=== PATIENT | male | born 1980 | race Two or more races ===

== ENCOUNTER 2019-01-22 03:42 | Inpatient (IN) | payer OTHER ==
[~2019-01-22] VITALS: Ht 172.7 cm; Wt 104.0 kg
[2019-01-22] MEDS ORDERED: ACETAMINOPHEN 500 MG TABLET ONE (03:56)
[2019-01-22] MEDS ORDERED: IBUPROFEN 800 MG TABLET ONE (03:56)
--- NOTE | 2019-01-22 04:07 | NUR ---
4 DAYS OF COUGH, SINUS CONGESTION, FEVERS, RA SPO2 87%, DYSPNIC WITH EXERTION, O2 PLACED 2L NC, PT HAS NO MEDICAL HX, POSITIVE DAILY SMOKER, HR 119. TO BEDSIDE
[2019-01-22] MEDS ORDERED: ACETAMINOPHEN 500 MG TABLET PO ONE (04:30)
[2019-01-22] MEDS ORDERED: SODIUM CHLORIDE 0.9% 1,000ML IVBOLUS ONE (04:30)
[2019-01-22] MEDS ORDERED: IBUPROFEN 200 MG TABLET PO ONE (04:30)
--- NOTE | 2019-01-22 04:33 | NUR ---
IV START, LABS DRAWN, FLUIDS INFUSING, EKG DONE AND DR GARCIA TO BEDSIDE
[2019-01-22] MEDS: DOXYCYCLINE 100MG TABLET PO SCH ×2 (04:45→17:12)
[2019-01-22 04:46] LABS: RAPID INFLUENZA A POSITIVE (Negative); RAPID INFLUENZA B Negative (Negative)
[2019-01-22 04:47] LABS: ALBUMIN 3.5 g/dL (3.4-5.0); ANION GAP 6 mmol/L (5-15); CALCIUM 8.6 mg/dL (8.5-10.1); CHLORIDE 103 mmol/L (98-107); CREATININE 0.75 mg/dL (0.7-1.3)
[2019-01-22] MEDS ORDERED: POLYETHYLENE GLYCOL 17 GM PACKET PO PRN (05:00)
[2019-01-22] MEDS ORDERED: OXYcodone IR 5MG TABLET PO PRN (05:00)
[2019-01-22] MEDS ORDERED: hydrALAzine 20 MG/ML, 1ML IVPush PRN (05:00)
[2019-01-22] MEDS ORDERED: LABETALOL 5MG/ML, 20ML IVPush PRN (05:00)
[2019-01-22] MEDS ORDERED: BISACODYL 10 MG SUPP PR PRN (05:00)
[2019-01-22] MEDS ORDERED: IBUPROFEN 600 MG TABLET PO PRN (05:00)
[2019-01-22] MEDS ORDERED: ONDANSETRON ODT 4 MG PO PRN (05:00)
[2019-01-22] MEDS ORDERED: morphine SULFATE 10 MG/ML, 1ML IVPush PRN (05:00)
[2019-01-22] MEDS ORDERED: HEPARIN 5,000 UNITS/ML, 1ML SQ SCH (05:00)
[2019-01-22] MEDS: NICOTINE 7 MG/24 HR PATCH.TD24 TD SCH (05:00)
[2019-01-22] MEDS ORDERED: GABAPENTIN 300 MG CAPSULE PO PRN (05:00)
[2019-01-22] MEDS ORDERED: PROMETHAZINE 25 MG/ML, 1ML IM PRN (05:00)
[2019-01-22] MEDS ORDERED: DOCUSATE 100 MG CAPSULE PO PRN (05:00)
[2019-01-22] MEDS ORDERED: ONDANSETRON 2MG/ML, 2ML IVPush PRN (05:00)
--- NOTE | 2019-01-22 05:01 | NUR ---
REPORT TO AMISHA WYNN, AWAIT FURTHER RADIOLOGY RESULTS BEFORE TRANSPORT.
--- NOTE | 2019-01-22 05:19 | NUR ---
LAB CALLS AND STATES THAT THEY NEED TO RECOLLECT.
[2019-01-22 05:31] LABS: HEMOGLOBIN A1C 5.4 % (4.2-6.3)
[2019-01-22 05:34] LABS: FREE T4 (FREE THYROXINE) 1.38 ng/dL (0.76-1.46); THYROID STIMULATING HORMONE 0.704 mIU/L (0.358-3.740)
[2019-01-22 06:07] LABS: MEAN CORPUSCULAR HEMOGLOBIN 30.7 pg (27.5-34.5); MEAN CORPUSCULAR VOLUME 90.4 fL (81-97); RED CELL DISTRIBUTION WIDTH 12.7 % (9.4-14.8)
[2019-01-22 06:26] VITALS: BP 112/72
[2019-01-22 06:38] LABS: BASOPHILS # (AUTO) 0.02 x10^3/uL (0-0.1); BASOPHILS % (AUTO) 0 % (0-1); EOSINOPHILS % (AUTO) 0 % (1-7); LYMPHOCYTES # (AUTO) 0.78 x10^3/uL (1-3.4); LYMPHOCYTES % (AUTO) 18 % (22-44); MD SCAN; MEAN PLATELET VOLUME 10.6 fL (7.4-10.4); MONOCYTES # (AUTO) 0.26 x10^3/uL (0.2-0.8); MONOCYTES % (AUTO) 6 % (2-9); NEUTROPHILS # (AUTO) 3.35 x10^3/uL (1.8-6.8); NEUTROPHILS % (AUTO) 76 % (42-75); PLATELET COUNT 99 x10^3/uL (130-400)
[2019-01-22 07:24] VITALS: BP 95/59
[2019-01-22] MEDS: ACETAMINOPHEN 325 MG TABLET PO PRN ×3 (07:41→20:25)
[2019-01-22] MEDS: SODIUM CHLORIDE 0.9% 1,000 ML IV SCH ×2 (07:41→17:13)
[2019-01-22] MEDS: CEFTRIAXONE PMX 2GM/50ML 50 ML IV SCH (10:14)
[2019-01-22] MEDS: OSELTAMIVIR 75 MG CAPSULE PO SCH ×2 (10:14→20:33)
[2019-01-22 13:45] VITALS: BP 104/60
[2019-01-22 19:05] VITALS: BP 136/70
[2019-01-23 00:42] VITALS: BP 127/76
[2019-01-23] MEDS: NICOTINE 7 MG/24 HR PATCH.TD24 TD SCH (05:00)
[2019-01-23 05:29] LABS: ALANINE AMINOTRANSFERASE 79 U/L (12-78); ALBUMIN 3.1 g/dL (3.4-5.0); ANION GAP 7 mmol/L (5-15); CALCIUM 8.1 mg/dL (8.5-10.1); CHLORIDE 102 mmol/L (98-107)
[2019-01-23 05:32] LABS: ALKALINE PHOSPHATASE 122 U/L (45-117); BILIRUBIN,TOTAL 0.4 mg/dL (0.2-1.0); CHOL/HDL RATIO 7.4; CHOLESTEROL, TOTAL 111 mg/dL (140-239); CREATININE 0.57 mg/dL (0.7-1.3); HDL CHOL % 14 % (26-37); HDL CHOLESTEROL (DIRECT) 15 mg/dL (40-60); LDL CHOLESTEROL,CALCULATED 67 mg/dL (54-169); LDL/HDL RATIO 4.5 (0.5-3.0); TRIGLYCERIDES 146 mg/dL (50-200); VLDL CHOLESTEROL 29 mg/dL (0-25)
[2019-01-23] MEDS: DOXYCYCLINE 100MG TABLET PO SCH ×2 (05:33→17:00)
[2019-01-23 05:37] LABS: MEAN CORPUSCULAR HEMOGLOBIN 31.8 pg (27.5-34.5); MEAN CORPUSCULAR HGB CONC 34.9 g/dL (33.2-36.2); MEAN PLATELET VOLUME 10.2 fL (7.4-10.4); PLATELET COUNT 98 x10^3/uL (130-400); RED BLOOD COUNT 3.95 x10^6/uL (4.38-5.82); RED CELL DISTRIBUTION WIDTH 13.4 % (9.4-14.8)
[2019-01-23 06:08] LABS: BASOPHILS # (AUTO) 0.01 x10^3/uL (0-0.1); BASOPHILS % (AUTO) 0 % (0-1); EOSINOPHILS % (AUTO) 0 % (1-7); LYMPHOCYTES # (AUTO) 1.39 x10^3/uL (1-3.4); LYMPHOCYTES % (AUTO) 34 % (22-44); MD SCAN; MONOCYTES # (AUTO) 0.47 x10^3/uL (0.2-0.8); MONOCYTES % (AUTO) 11 % (2-9); NEUTROPHILS # (AUTO) 2.27 x10^3/uL (1.8-6.8); NEUTROPHILS % (AUTO) 55 % (42-75)
[2019-01-23 07:50] VITALS: BP 104/71
[2019-01-23] MEDS: CEFTRIAXONE PMX 2GM/50ML 50 ML IV SCH (08:12)
[2019-01-23] MEDS: OSELTAMIVIR 75 MG CAPSULE PO SCH ×2 (08:12→20:59)
[2019-01-23 13:21] VITALS: BP 114/70
[2019-01-23 19:26] VITALS: BP 127/73
[2019-01-24 02:17] VITALS: BP 110/70
[2019-01-24] MEDS: NICOTINE 7 MG/24 HR PATCH.TD24 TD SCH (05:00)
[2019-01-24] MEDS: DOXYCYCLINE 100MG TABLET PO SCH (06:03)
[2019-01-24 06:58] VITALS: BP 110/72
[2019-01-24] MEDS: OSELTAMIVIR 75 MG CAPSULE PO SCH (08:50)
[2019-01-24] MEDS: CEFTRIAXONE PMX 2GM/50ML 50 ML IV SCH (09:29)
[2019-01-24] MEDS ORDERED: DOXY100T10 PO (12:20)
[2019-01-24] MEDS ORDERED: OSEL75CA PO (12:20)
[2019-01-24] MEDS ORDERED: CEFD300C37 PO (12:20)
== END 2019-01-24 12:49 | disposition home or self-care (01) | DRG 193 ==
LOC: ED 04:28 → EDIP 04:33 → 3NE 05:45
PROVIDERS: ADMIT Internal Medicine; ATTEND Internal Medicine
DX: J10.00 Influenza due to other identified influenza virus with unspecified type of pneumonia (principal); J96.01 Acute respiratory failure with hypoxia; F17.210 Nicotine dependence, cigarettes, uncomplicated; I10 Essential (primary) hypertension; K76.0 Fatty (change of) liver, not elsewhere classified
CPT/HCPCS: 36415; 71045; 71048; 76700; 80048; 80053; 80061; 80074; 82040; 83036; 83605; 83735; 84439; 84443; 85025; 87040; 87070; 87081; 87205; 87400; 87806; 93005; 96372; 99285; G0378; J0696; J1644; G0475; J7030